=== PATIENT | male | born 1990 | race Caucasian/White ===

== ENCOUNTER 2017-07-08 10:20 | Emergency (ER) | payer OTHER ==
[2017-07-08 10:28] VITALS: TEMP 98.3; O2SAT 98; BMI 19.9
--- NOTE | 2017-07-08 11:39 | RAD ---
PROCEDURE: Right Wrist Radiographs. HISTORY: pain COMPARISON: None. FINDINGS: BONES: Normal. No fracture. JOINTS: Normal. No dislocation. SOFT TISSUES: Normal. OTHER FINDINGS: None. IMPRESSION: Normal right wrist radiographs.
--- NOTE | 2017-07-08 12:28 | C.PDOC ---
History Of Present Illness 26yo male, presents to ED complaining of right wrist pain for the past couple days after he injured himself at work. Patient reports a mechanical fall during which he attempted to break his fall and landed on his outstretched hand. He denies any weakness, numbness or tingling of his right hand. No other complaints. Time Seen by Provider: 07/08/17 10:55 Chief Complaint (Nursing): Finger,Hand,&Wrist History Per: Patient History/Exam Limitations: no limitations Onset/Duration Of Symptoms: Days Current Symptoms Are (Timing): Still Present Quality: "Pain" Past Medical History Reviewed: Historical Data, Nursing Documentation, Vital Signs Vital Signs: Last Vital Signs Temp 98.3 F 07/08/17 10:28 Pulse 89 07/08/17 12:38 Resp 18 07/08/17 12:38 BP 138/82 07/08/17 12:38 Pulse Ox 98 07/08/17 12:38 - Medical History PMH: No Chronic Diseases Surgical History: No Surg Hx Family History: States: No Known Family Hx - Social History Hx Alcohol Use: No Hx Substance Use: No - Immunization History Hx Tetanus Toxoid Vaccination: No Hx Influenza Vaccination: No Hx Pneumococcal Vaccination: No Review Of Systems Except As Marked, All Systems Reviewed And Found Negative. Musculoskeletal: Positive for: Hand Pain (right wrist) Neurological: Negative for: Weakness, Numbness Physical Exam - Physical Exam Appears: Non-toxic, No Acute Distress Skin: Normal Color Head: Normacephalic Eye(s): bilateral: Normal Inspection Neck: Normal ROM, Supple Chest: Symmetrical Cardiovascular: Rhythm Regular Respiratory: Normal Breath Sounds, No Wheezing Extremity: Normal ROM, Tenderness (tenderness to medial and lateral aspect of right wrist), No Deformity, No Swelling, No Other (bruising to right wrist) Neurological/Psych: Oriented x3 ED Course And Treatment O2 Sat by Pulse Oximetry: 98 (RA) Pulse Ox Interpretation: Normal Medical Decision Making Medical Decision Making: Impression: Wrist injury Plan: -- XR Right wrist XR reviewed by provider and indicates no fractures or dislocations. Patient's wrist placed in mari wrap and is stable for discharge home. Disposition Counseled Patient/Family Regarding: Studies Performed, Diagnosis, Need For Followup, Rx Given - Disposition Referrals: [facility] [Outside] Disposition: HOME/ ROUTINE Disposition Time: 12:26 Condition: STABLE Prescriptions: Ibuprofen [Motrin] 600 mg PO TID #15 tab Instructions: Wrist Sprain (DC) Forms: General Discharge Instructions, [facility] (Telugu), Work Excuse - POA Present On Arrival: None - Clinical Impression Clinical Impression: Sprain of wrist, right - Scribe Statement The provider has reviewed the documentation as recorded by the Scribe (Marjorie De Jesus) Provider Attestation: All medical record entries made by the Scribe were at my direction and personally dictated by me. I have reviewed the chart and agree that the record accurately reflects my personal performance of the history, physical exam, medical decision making, and the department course for this patient. I have also personally directed, reviewed, and agree with the discharge instructions and disposition.
[2017-07-08 12:38] VITALS: BP 138/82; PULSE 89; RESP 18
== END 2017-07-08 12:39 | disposition home or self-care (01) ==
LOC: C.ER 10:20
DX: S63.501A Unspecified sprain of right wrist, initial encounter (principal); W19.XXXA Unspecified fall, initial encounter; Y92.89 Other specified places as the place of occurrence of the external cause; Y99.8 Other external cause status